=== PATIENT | male | born 1990 | race African-American/Black ===

== ENCOUNTER 2022-08-30 23:00 | Observation (INO) | payer BC, OTHER, SELFPAY ==
[2022-08-30 23:45] LABS: #Basophils 0.1 10x3/uL (0.0-0.2); #Eosinphils 0.2 10x3/uL (0.0-0.5); #Monocytes 0.8 10x3/uL (0.0-1.1); #Neutrophils 7.8 10x3/uL (1.5-8.4); %Basophils 0.5 % (0.0-2.0); %Eosinophils 1.7 % (0.0-6.0); %Lymphocytes 23.1 % (18.0-47.0); %Monocytes 6.5 % (0.0-10.0); %Neutrophils 67.9 % (40.0-75.0); Hemoglobin 13.5 g/dL (13.5-17.5); Mean Corpuscular HGB CONC 33.8 g/dL (32.0-36.0); Mean Corpuscular Hemoglobin 31.4 pg (27.0-33.0); Mean Corpuscular Volume 92.8 fl (81.2-95.1); Mean Platelet Volume 8.9 fl (7.4-10.4); Platelet Count 314 10x3/uL (150-450); RBC Distribution Width 11.3 % (11.5-14.5); White Blood Cell (WBC) Count 11.5 10x3/uL (3.5-10.5)
[2022-08-30 23:59] LABS: ALT (SGPT) 10 U/L (8-55); AST (SGOT) 18 U/L (5-34); Albumin 4.1 g/dL (3.5-5.0); Alkaline Phosphatase 71 U/L (40-110); Anion Gap 13 mmol/L (10-20); BUN (Urea Nitrogen) 8 mg/dL (8.9-20.6); Bilirubin, Total 0.2 mg/dL (0.2-1.2); Calc. Creatinine Clearance 0 mL/min (70-130); Calcium 9.2 mg/dL (7.8-10.44); Carbon Dioxide 26 mmol/L (22-29); Chloride 104 mmol/L (98-107); Estimated GFR 100; Glucose 101 mg/dL (70-105); Lipase 458 U/L (8-78); Potassium 3.6 mmol/L (3.5-5.1); Protein, Total 7.1 g/dL (6.0-8.3); Sodium 139 mmol/L (136-145)
[2022-08-31] MEDS ORDERED: Ketorolac Tromethamine 30 MG/ML VIAL ONE (00:40)
[2022-08-31] MEDS ORDERED: Ondansetron PF 4 MG/2 ML Vial IVP PRN (03:45)
[2022-08-31] MEDS ORDERED: Ketorolac Tromethamine 30 MG/ML VIAL IVP PRN (03:45)
[2022-08-31] MEDS ORDERED: Morphine 4 MG/ML VIAL SLOW IVP PRN (03:45)
[2022-08-31] MEDS ORDERED: Potassium Chloride 20 MEQ in Lactated Ringer's 1,000 ML IV SCH (03:45)
[2022-08-31] MEDS ORDERED: Lactated Ringer's 1,000 ML IV SCH (04:30)
[2022-08-31 05:12] LABS: #Basophils 0.1 10x3/uL (0.0-0.2); #Eosinphils 0.1 10x3/uL (0.0-0.5); #Monocytes 0.6 10x3/uL (0.0-1.1); #Neutrophils 9.1 10x3/uL (1.5-8.4); %Basophils 0.5 % (0.0-2.0); %Eosinophils 0.7 % (0.0-6.0); %Lymphocytes 18.8 % (18.0-47.0); %Monocytes 5.1 % (0.0-10.0); %Neutrophils 74.5 % (40.0-75.0); Hemoglobin 12.2 g/dL (13.5-17.5); Mean Corpuscular HGB CONC 33.2 g/dL (32.0-36.0); Mean Corpuscular Volume 93.1 fl (81.2-95.1); Mean Platelet Volume 8.7 fl (7.4-10.4); Platelet Count 286 10x3/uL (150-450); RBC Distribution Width 11.2 % (11.5-14.5); Red Blood Cell (RBC) Count 3.94 10x6/uL (4.32-5.72); White Blood Cell (WBC) Count 12.3 10x3/uL (3.5-10.5)
[2022-08-31 05:27] LABS: Anion Gap 10 mmol/L (10-20); BUN (Urea Nitrogen) 6 mg/dL (8.9-20.6); Calc. Creatinine Clearance 0 mL/min (70-130); Calcium 8.8 mg/dL (7.8-10.44); Carbon Dioxide 26 mmol/L (22-29); Chloride 108 mmol/L (98-107); Estimated GFR 118; Glucose 99 mg/dL (70-105); Lipase 445 U/L (8-78); Magnesium 1.7 mg/dL (1.6-2.6); Potassium 4.3 mmol/L (3.5-5.1); Sodium 140 mmol/L (136-145)
[2022-08-31 05:56] LABS: Cardiac Risk 2.7 (Less than 4.5); Cholesterol 101 mg/dl (< 200 Desired); HDL Cholesterol 37 mg/dL (>60 Neg Risk); LDL Cholesterol, Calculated 49 mg/dL; Triglycerides 75 mg/dL (Less than 150)
[2022-08-31] MEDS ORDERED: Iopamidol 300 61% 100 ML VIAL FS ONE (09:48)
[2022-08-31 12:24] LABS: Amphetamine Detected (NotDetected); Barbiturates Screen Not Detected (NotDetected); Benzodiazepine Screen Not Detected (NotDetected); Cocaine Metabolite Screen Not Detected (NotDetected); Methadone Not Detected (NotDetected); Methamphetamine Detected (NotDetected); Opiate Screen Not Detected (NotDetected); Oxycodone Screen Not Detected (NotDetected); Phencyclidine (PCP) Not Detected (NotDetected); THC/Cannabinoid Screen Detected (NotDetected); Tricyclic Screen Not Detected (NotDetected)
[2022-08-31 16:54] VITALS: BP 122/78; TEMP 98.2
== END 2022-08-31 17:45 | disposition home or self-care (01) ==
LOC: CSHERS 23:00 → CSHERHOLD 08-31 04:13 → INTOOBSV 08-31 04:13 → CSHTELE 08-31 13:06
PROVIDERS: ADMIT Family Medicine; ATTEND Physician Assistant Medical
DX: K85.90 Acute pancreatitis without necrosis or infection, unspecified (principal); F12.90 Cannabis use, unspecified, uncomplicated; J45.909 Unspecified asthma, uncomplicated; Z72.0 Tobacco use
CPT/HCPCS: 36415; 74177; 80048; 80053; 80061; 80306; 83690; 83735; 85025; 93005; 96361; 96372; 96374; 96375; G0378; J1650; J1885; J3475; J3480; J7120; Q9967